=== PATIENT | male | born 1970 | race Caucasian/White ===

== ENCOUNTER 2017-08-09 01:50 | Inpatient (IN) ==
[2017-08-09 02:25] LABS: Basophils % 0.3 % (0.0-0.8); Eosinophils # 0.2 10*3/uL (0.0-0.87); Eosinophils % 1.8 % (0.00-10.9); Hematocrit 52.1 VOL% (42.0-52.0); Hemoglobin 16.9 GM/DL (14.0-18.0); Immature Granulocytes % 0.2 %; Immature Granulocytes Absolute 0.02 #; Lymphocytes # 2.7 10*3/uL (1.4-4.0); Lymphocytes % 27.4 % (21.2-54.2); Mean Corpuscular HGB Conc 32.4 GM/DL (32-36); Mean Corpuscular Hemoglobin 32 PG (27-34); Mean Corpuscular Volume 97.9 FL (87-102); Monocytes # 0.7 10*3/uL (0.11-0.8); Monocytes % 7.1 % (1.7-12.7); Neutrophils # 6.1 10*3/uL (1.4-7.4); Neutrophils % 63.2 % (38.7-73.9); Platelet Count 179 T/CUMM (130-400); Red Blood Count 5.32 MC/CUMM (3.8-5.5); Red Cell Distribution Width 14.1 % (9.3-17.3); White Blood Count 9.7 T/CUMM (4-12)
[2017-08-09] MEDS ORDERED: HYDROmorphone 2 MG/1 ML VIAL IV STA (02:26)
[2017-08-09] MEDS ORDERED: ONDANSETRON 4 MG/2 ML VIAL IV STA (02:26)
[2017-08-09] MEDS ORDERED: SODIUM CHLORIDE 0.9% 1,000 ML IV STA (02:26)
[2017-08-09] MEDS ORDERED: MORPHINE 4 MG/1 ML VIAL IV STA (02:30)
[2017-08-09 02:41] LABS: Albumin 4.1 G/DL (3.4-5.0); Bilirubin,Total 1.1 MG/DL (0.2-1.0); Calcium 8.9 MG/DL (8.5-10.1); Lactic Acid 0.9 MMOL/L (0.4-2.0); Potassium 3.9 MMOL/L (3.5-5.1); Total Protein 7.8 G/DL (6.4-8.3)
[2017-08-09] MEDS ORDERED: LORazepam 2 MG/1 ML VIAL IV STA (03:57)
[2017-08-09] MEDS ORDERED: ONDANSETRON 4 MG/2 ML VIAL IV PRN (04:06)
[2017-08-09] MEDS: DEXTROSE 5% LACTATED RINGERS 1,000 ML IV SCH ×3 (05:55→21:29)
[2017-08-09] MEDS: MORPHINE 10 MG/1 ML VIAL IV SCH ×2 (07:20→08:35)
[2017-08-09] MEDS ORDERED: MORPHINE 4 MG/1 ML VIAL IV PRN (09:59)
[2017-08-09] MEDS: PANTOPRAZOLE 40 MG VIAL IV SCH (10:15)
[2017-08-09] MEDS: ONDANSETRON 4 MG/2 ML VIAL IV SCH (17:18)
[2017-08-10] MEDS: ONDANSETRON 4 MG/2 ML VIAL IV SCH ×4 (00:40→19:22)
[2017-08-10] MEDS: DEXTROSE 5% LACTATED RINGERS 1,000 ML IV SCH ×2 (05:24→15:31)
[2017-08-10 05:37] LABS: Basophils % 0.4 % (0.0-0.8); Eosinophils # 0.2 10*3/uL (0.0-0.87); Eosinophils % 2.5 % (0.00-10.9); Hematocrit 43.6 VOL% (42.0-52.0); Hemoglobin 14.5 GM/DL (14.0-18.0); Immature Granulocytes % 0.1 %; Immature Granulocytes Absolute 0.01 #; Lymphocytes # 1.8 10*3/uL (1.4-4.0); Mean Corpuscular HGB Conc 33.3 GM/DL (32-36); Mean Corpuscular Hemoglobin 32 PG (27-34); Mean Corpuscular Volume 96.7 FL (87-102); Mean Platelet Volume 10.7 FL (9.6-12.0); Monocytes # 0.8 10*3/uL (0.11-0.8); Monocytes % 12.3 % (1.7-12.7); Neutrophils # 3.9 10*3/uL (1.4-7.4); Neutrophils % 57.7 % (38.7-73.9); Platelet Count 133 T/CUMM (130-400); Red Blood Count 4.51 MC/CUMM (3.8-5.5); Red Cell Distribution Width 14.3 % (9.3-17.3); White Blood Count 6.7 T/CUMM (4-12)
[2017-08-10 06:15] LABS: Osmolality,Calculated 283.1 MOS/KG (273-304)
[2017-08-10 06:36] LABS: Band Neutrophils 2 % (0-10); Hypochromasia 1+; Lymphocytes 28 % (20-55); Platelet Estimate Normal; Segmented Neutrophils 60 % (50-85); Total Cells Counted 100
[2017-08-10] MEDS: PANTOPRAZOLE 40 MG VIAL IV SCH (09:35)
[2017-08-10] MEDS ORDERED: ACETAMINOPHEN 325 MG TABLET PO ONE (15:34)
[2017-08-10 16:40] LABS: Apearance,Urine CLEAR (Clear); Bilirubin,Urine Negative (Negative); Blood, Urine Negative (Negative); Glucose,Urine (UA) Negative (Negative); Ketones,Urine Negative (Negative); Nitrite,Urine Negative (Negative); Protein,Urine Negative; RBC,Urine 2 /HPF (0-4); Urine Color Yellow (Yellow); Urine Specific Gravity 1.009 (1.001-1.035); Urine Urobilinogen < 2.0 EU/DL (0.2-1.0); WBC,Urine <1 /HPF (0-6)
[2017-08-11] MEDS: DEXTROSE 5% LACTATED RINGERS 1,000 ML IV SCH ×4 (00:36→23:06)
[2017-08-11] MEDS: ONDANSETRON 4 MG/2 ML VIAL IV SCH ×5 (00:37→23:10)
[2017-08-11 07:11] LABS: Calcium 8.2 MG/DL (8.5-10.1); Osmolality,Calculated 279.3 MOS/KG (273-304); Potassium 3.9 MMOL/L (3.5-5.1)
[2017-08-11] MEDS: PANTOPRAZOLE 40 MG VIAL IV SCH (11:46)
[2017-08-12 05:15] LABS: Calcium 7.9 MG/DL (8.5-10.1); Osmolality,Calculated 282.1 MOS/KG (273-304)
[2017-08-12] MEDS: ONDANSETRON 4 MG/2 ML VIAL IV SCH ×2 (07:15→12:19)
[2017-08-12] MEDS: DEXTROSE 5% LACTATED RINGERS 1,000 ML IV SCH ×2 (07:16→14:03)
[2017-08-12] MEDS: PANTOPRAZOLE 40 MG VIAL IV SCH (08:58)
[2017-08-12 13:57] VITALS: BP 120/66
== END 2017-08-12 13:50 | disposition home or self-care (01) | DRG 390 ==
LOC: N.ED 01:50 → N.EDINP 04:06 → N.3E 05:18
PROVIDERS: ADMIT Surgery; ATTEND Surgery